=== PATIENT | male | born 1990 | race Two or more races ===

== ENCOUNTER → 2017-03-27 | Outpatient (CLI) | payer OTHER ==
--- NOTE | ~2017-03-27 | MR18 ---
[facility] A Service of [facility] RADIOLOGY TEXT RESULTS PATIENT: CHICHO HUNT LOCATION: [facility] : 88 UNIT #: [id number] AGE: [address]: TANESHA Moore APRN SEX: M ORDER DR: [id number] [facility] [address] [place], [place] [address] [id number] O MR#: [id number] Acc #: [id number] NAME: CHICHO HUNT : 1990 SEX: M STUDY DATE/TIME: 03/27/2017 7:57 UNIT: [facility] ROOM: STUDY DESCRIPTION: MR Brain Wo Contrast Attending Physician: Tanesha Winston Aprn Referring Physician: Tanesha Winston Aprn Ordering Physician: Tanesha Winston Aprn Primary Care Physician: Davina Jane M.D. MRI CENTER REPORT This report is preliminary unless electronic signature is present. EXAM Brain MRI. HISTORY Headaches for the past 3 years. TECHNIQUE Multiplanar imaging of the brain was performed with short and long TR. FINDINGS There is no evidence of abnormal restricted diffusion. The routine brain images show a small focus of bright FLAIR signal in the left parietal white matter. This is nonspecific and is felt to be of doubtful significance. There is certainly nothing to suggest generalized demyelinating disease. There is no evidence of mass lesion, hemorrhage, or edema. The temporal lobes are symmetric. Extraaxial structures are remarkable for mild mucosal thickening in both maxillary sinus floors. IMPRESSION 1. Mild chronic inflammatory sinus disease in the maxillary sinuses. 2. There is a single focus of bright FLAIR signal in the left parietal white matter of doubtful significance. Otherwise negative brain MRI. Dictated by... Jose Lerma M.D. THIS IS AN ELECTRONICALLY VERIFIED REPORT Jose Lerma M.D. at 03/27/2017 4:10 PM KENNETH/bin TD: 03/27/2017 12:58 [facility] A Service of [facility] RADIOLOGY TEXT RESULTS PATIENT: CHICHO HUNT LOCATION: [facility] : [birth year] UNIT #: [id number] AGE: [address]: TANESHA Moore, [employer]POSITION TEACHER SEX: M ORDER DR: LISSETTE #: [id number] MRI CENTER REPORT Page 1 of 1 COPY
== END | disposition home or self-care (01) ==
LOC: CCAT 07:00
DX: R51 Headache (principal); J32.0 Chronic maxillary sinusitis
CPT/HCPCS: 70551